=== PATIENT | male | born 1990 | race American Indian/Alaskan Native ===

== ENCOUNTER 2019-02-25 09:04 | Emergency (ER) | payer OTHER ==
[2019-02-25] MEDS ORDERED: ZOFRAN ODT PO ONE (09:18)
[2019-02-25] MEDS ORDERED: TORADOL IM ONE (09:19)
--- NOTE | 2019-02-25 09:23 | Emergency Department Report ---
ED Headache HPI - General Chief Complaint: Headache Stated Complaint: BRAIN PAIN Time Seen by Provider: 02/25/19 09:17 Source: patient, RN notes reviewed Exam Limitations: no limitations - History of Present Illness Initial Comments: This patient 28-year-old male who presents to the emergency room with frontal headache. She reports pain as a 10 on pain scale, left frontal scalp. 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 Patient states that he was diagnosed in [place] in an emergency room. He was seeing a neurologist, last seen 3 years ago. Patient states he was unable to follow up to the incarceration. He got Ativan 2017 and had intermittent headaches but nothing like the one today. Reports vomiting since awaking this morning. Timing/Duration: 1-3 hours Quality: throbbing Head Injury Location: frontal Recent Head Trauma: no recent headache/trauma, occasional headaches Modifying Factors: improves with: movement Associated Symptoms: nausea/vomiting. denies: confusion, fatigue, facial pain, fever/chills, flushing, loss of consciousness, nasal congestion, nasal drainage, numbness in legs/feet, seizures, sinus infection, stiff neck, vision changes, weakness Allergies/Adverse Reactions: Allergies No Known Allergies Allergy (Unverified 02/25/19 09:06) ED Review of Systems ROS: Stated complaint: BRAIN PAIN Other details as noted in HPI Constitutional: denies: chills, fever Respiratory: denies: cough, shortness of breath, wheezing Cardiovascular: denies: chest pain, palpitations Gastrointestinal: nausea, vomiting. denies: abdominal pain, diarrhea Skin: denies: rash, lesions Neurological: headache. denies: weakness, paresthesias Psychiatric: denies: anxiety, depression ED Past Medical Hx - Past Medical History Previous Medical History?: Yes Additional medical history: Left frontal tumor - Surgical History Past Surgical History?: No - Social History Smoking Status: Current Some Day Smoker Substance Use Type: Alcohol, Marijuana ED Physical Exam - General Limitations: No Limitations General appearance: alert, in no apparent distress - Neck Neck exam: Present: normal inspection - Respiratory Respiratory exam: Present: normal lung sounds bilaterally. Absent: respiratory distress - Cardiovascular Cardiovascular Exam: Present: regular rate, normal rhythm. Absent: systolic murmur, diastolic murmur, rubs, gallop - GI/Abdominal GI/Abdominal exam: Present: soft, normal bowel sounds - Neurological Exam Neurological exam: Present: alert, oriented X3 - Expanded Neurological Exam Expanded Patient oriented to: Present: person, place, time Speech: Present: fluid speech Cranial nerves: EOM's Intact: Normal, Gag Reflex: Normal, Tongue Deviation: Normal, Nystagmus: Normal, Facial Sensation: Normal, Facial Palsy with Forehead Movement: Normal, Facial Palsy without Forehead Movement: Normal Cerebellar function: Finger to Nose: Normal, Heel to Torres: Normal, Romberg: Normal Best Eye Response (Lambert): (4) open spontaneously Best Motor Response (Lambert): (6) obeys commands Best Verbal Response (Lambert): (5) oriented Shweta Total: 15 - Psychiatric Psychiatric exam: Present: normal affect, normal mood - Skin Skin exam: Present: warm, dry, intact, normal color. Absent: rash ED Course Vital Signs 02/25/19 09:06 Temperature 98.3 F Pulse Rate 80 Respiratory 18 Rate Blood Pressure 116/66 O2 Sat by Pulse 98 Oximetry - Reevaluation(s) Reevaluation #1: 02/25/19 09:[address] Zaragoza informed of abnormal CT form [facility]. * Left frontal mass with surrounding vasogenic edema. Mild right midline shift. Further evaluation with a MRI of the brain with contrast. MRI is unavailable a CT brain with contrast may be helpful. * 02/25/2019 at 0652 PT: I, Ramiro Wilks MD, discussed the findings over the phone with Dr. Zaragoza. 02/25/19 10:00 Paged Neurology at [facility] for possible transfer. Pending call. Reevaluation #2: 02/25/19 10:[address] [facility] [address] Ronny Hernandez who agreed to accept patient for transfer. Patient awaiting transfer. ED Medical Decision Making - Radiology Data Radiology results: report reviewed PROCEDURE: CT HEAD/BRAIN WO CON TECHNIQUE: Computerized tomography of the head was performed without contrast material. CT DOSE LENGTH PRODUCT: 920.5 mGy-cm. HISTORY: headache, hx of left frontal tumor COMPARISONS: None currently available. FINDINGS: Ill-defined area of soft tissue density with calcification in the left frontal lobe on series 2:17 measures 2.3 x 2.7 cm. Surrounding area of decreased attenuation identified. There is a mild right midline shift measuring 2.8 mm. Basal cisterns are patent. No hydrocephalus. There is no evidence for acute ischemia. There is no hemorrhage. Age appropriate jones-white matter attenuation is noted. There is no calvarial fracture. The temporal bones demonstrate aerated mastoid air cells. The middle ears appear unremarkable. Paranasal sinuses are unremarkable. Globes are intact. IMPRESSION: * Left frontal mass with surrounding vasogenic edema. Mild right midline shift. Further evaluation with a MRI of the brain with contrast. MRI is unavailable a CT brain with contrast may be helpful. * 02/25/2019 at 0652 PT: I, Ramiro Wilks MD, discussed the findings over the phone with Dr. Zaragoza. - Medical Decision Making Patient was examined by me. Vitals are normal and patient is in no acute distress. Given Toradol and Zofran IV while in ER. Obtain a CT of head without contrast. CT dictated by radiologist. Radiologist from [facility] radiology noted that attending Dr. Batres of abnormal results. Left frontal mass with surrounding vasogenic edema. Mild right midline shift. Further evaluation with a MRI of the brain with contrast. MRI is unavailable a CT brain with contrast may be helpful. Consulted Neurology at [facility] Dr. Ronny Hernandez who agreed to accept patient. Patient will be transferred via EMS to [facility]. Critical care attestation.: If time is entered above; I have spent that time in minutes in the direct care of this critically ill patient, excluding procedure time. ED Disposition Clinical Impression: Left frontal lobe mass, Nausea and vomiting in adult Headache Qualifiers: Headache type: other headache syndrome Qualified Code(s): G44.89 - Other headache syndrome Disposition: DC/TX-70 ANOTHER TYPE HLTHCARE Is pt being admited?: No Condition: Stable Referrals: YAN YEAGER MD [Primary Care Provider] - 3-5 Days
[2019-02-25] MEDS ORDERED: TORADOL IV ONE (09:31)
--- NOTE | 2019-02-25 09:55 | Cat Scan Report ---
PROCEDURE: CT HEAD/BRAIN WO CON TECHNIQUE: Computerized tomography of the head was performed without contrast material. CT DOSE LENGTH PRODUCT: 920.5 mGy-cm. HISTORY: headache, hx of left frontal tumor COMPARISONS: None currently available. FINDINGS: Ill-defined area of soft tissue density with calcification in the left frontal lobe on series 2:17 me asures 2.3 x 2.7 cm. Surrounding area of decreased attenuation identified. There is a mild right midline shift measuring 2.8 mm. Basal cisterns are patent. No hydrocephalus. There is no evidence for acute ischemia. There is no hemorrhage. Age appropriate jones-white matter attenuation is noted. There is no calvarial fracture. The temporal bones demonstrate aerated mastoid air cells. The middle ears appear unremarkable. Paranasal sinuses are unremarkable. Globes are intact. IMPRESSION: * Left frontal mass with surrounding vasogenic edema. Mild right midline shift. Further evaluation w ith a MRI of the brain with contrast. MRI is unavailable a CT brain with contrast may be helpful. * 02/25/2019 at 0652 PT: I, Ramiro Wilks MD, discussed the findings over the phone with Dr. Zaragoza. This document is electronically signed by Ramiro Wilks MD., February 25 2019 09:53:30 AM ET
[2019-02-25 10:51] VITALS: BP 118/62
== END 2019-02-25 12:19 | disposition other institution (70) ==
LOC: ED 09:04
DX: R51 Headache (principal); R11.2 Nausea with vomiting, unspecified; R22.0 Localized swelling, mass and lump, head
CPT/HCPCS: 70450; 96374; 99285; J1885; Q0162